=== PATIENT | male | born 1970 | race Caucasian/White ===

== ENCOUNTER 2017-04-20 17:14 | Emergency (ER) | payer SELFPAY ==
[~2017-04-20] VITALS: Ht 180.3 cm; Wt 81.6 kg
[2017-04-20] MEDS ORDERED: CLINDAMYCIN PHOS 600 MG/ 4 ML VIAL IM ONE (18:00)
[2017-04-20] MEDS ORDERED: KETOROLAC TROMETHAMINE 60 MG/2 ML VIAL IM ONE (18:30)
[2017-04-20 19:16] VITALS: BP 155/82
== END 2017-04-20 18:50 | disposition home or self-care (01) ==
LOC: FSED 17:14
DX: L02.511 Cutaneous abscess of right hand (principal); F17.210 Nicotine dependence, cigarettes, uncomplicated
CPT/HCPCS: 26010; 87071; 87186; 87205; 99283; J1885